=== PATIENT | male | born 1965 | race Caucasian/White ===

== ENCOUNTER 2018-05-26 11:22 | Outpatient (CLI) | payer MEDICAID, OTHER ==
[~2018-05-26 11:22] MED LIST: ASPI-101 PO; NO HOME MEDS; PER10325T PO; cpm
[2018-05-26 11:47] VITALS: BP 136/86
== END 2018-05-26 12:55 | disposition home or self-care (01) ==
LOC: ORTHO 11:22
PROVIDERS: ATTEND Nurse Practitioner Family
DX: M25.562 Pain in left knee (principal); F17.210 Nicotine dependence, cigarettes, uncomplicated; Z96.652 Presence of left artificial knee joint; Z88.5 Allergy status to narcotic agent; Z88.8 Allergy status to other drugs, medicaments and biological substances; Z79.82 Long term (current) use of aspirin
CPT/HCPCS: 73560

== ENCOUNTER 2018-09-07 17:55 | Emergency (ER) | payer MEDICAID ==
[~2018-09-07] VITALS: Ht 185.4 cm; Wt 100.0 kg
[2018-09-07 18:27] VITALS: BP 134/86
[2018-09-07 19:22] LABS: BASOPHILS # (AUTO) 0.1 X10'3 (0-0.2); BASOPHILS % (AUTO) 0.8 % (0-1); EOSINOPHILS # (AUTO) 0.5 X10'3 (0-0.9); EOSINOPHILS % (AUTO) 5.3 % (0-6); HEMATOCRIT 49.4 % (42.0-52.0); HEMOGLOBIN 16.9 g/dl (14.0-17.9); LYMPHOCYTES # (AUTO) 2.2 X10'3 (1.1-4.8); LYMPHOCYTES % (AUTO) 22.9 % (21-51); MEAN CORPUSCULAR HEMOGLOBIN 30.2 PG (27.0-31.0); MEAN CORPUSCULAR HGB CONC 34.3 g/dL (33.0-36.5); MEAN CORPUSCULAR VOLUME 88.1 FL (78-98); MEAN PLATELET VOLUME 9.4 FL (7.4-10.4); MONOCYTES # (AUTO) 0.8 X10'3 (0-0.9); MONOCYTES % (AUTO) 8.4 % (2-12); NEUTROPHILS # (AUTO) 6.1 X10'3 (1.8-7.7); NEUTROPHILS % (AUTO) 62.6 % (42-75); PLATELET COUNT 177 X10'3 (140-440); RED CELL DISTRIBUTION WIDTH 12.8 % (11.5-14.5); WHITE BLOOD COUNT 9.8 X10'3 (4.5-11.0)
[2018-09-07 19:37] LABS: ALANINE AMINOTRANSFERASE 46 U/L (12-78); ALBUMIN 4.2 G/DL (3.4-5.0); ALBUMIN/GLOBULIN RATIO 1.1 (1.1-1.5); ALKALINE PHOSPHATASE 77 IU/L (46-116); ANION GAP 8 (8-16); ASPARTATE AMINO TRANSFERASE 27 U/L (10-37); BILIRUBIN,TOTAL 0.5 MG/DL (0.1-1.0); BLOOD UREA NITROGEN 22 MG/DL (7-18); BUN/CREATININE RATIO 23.4 (5.4-32.0); CALCIUM 9.4 MG/DL (8.5-10.1); CHLORIDE 105 MMOL/L (99-107); CREATININE 0.94 MG/DL (0.60-1.10); GLUCOSE 111 MG/DL (70-104); POTASSIUM 4.6 MMOL/L (3.5-5.1); SODIUM 142 MMOL/L (135-145); TOTAL CARBON DIOXIDE 28.8 MMOL/L (24-32); TOTAL PROTEIN 7.9 G/DL (6.4-8.2); eGFR 85 ML/MIN
[2018-09-07] MEDS ORDERED: ketorolac trometh inj. 60 MG/2 ML VIAL IM ONE (20:10)
[2018-09-07] MEDS ORDERED: TRAM50TA2 PO (20:59)
== END 2018-09-07 21:12 | disposition home or self-care (01) ==
LOC: ER 17:56
DX: K40.20 Bilateral inguinal hernia, without obstruction or gangrene, not specified as recurrent (principal); K21.9 Gastro-esophageal reflux disease without esophagitis; Z98.890 Other specified postprocedural states; Z88.5 Allergy status to narcotic agent; Z88.8 Allergy status to other drugs, medicaments and biological substances; Z79.899 Other long term (current) drug therapy
CPT/HCPCS: 36415; 74176; 80053; 85025; 96372; 99284; J1885

== ENCOUNTER 2019-04-22 19:05 | Emergency (ER) | payer MEDICAID ==
[~2019-04-22] VITALS: Ht 185.4 cm; Wt 93.2 kg
--- NOTE | 2019-04-22 19:52 | NUR ---
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 JENNIFER WAS REQUESTING TO HAVE A DRUG AND ALCOHOL SCREEN COMPLETED ON THE PT. I SPOKE WITH THE PT REGARDING THE PHONE CALL AND MICHELLE SAID THAT IT WAS OK TO SHARE INFORMATION WITH JENNIFER. JENNIFER IS REQUESTING TO HAVE SOMEONE COME TO THE ED TO COLLECT SAMPLES OF BLOOD AND URINE, I VERIFIED WITH MY CHARGE NURSE KAMILA THAT IT WAS OK TO HAVE SOMEONE COME TO THE ED TO COLLECT THE SAMPLES AND SHE SAID THAT IT WAS OK. JENNIFER SAID THAT SHE WOULD CALL BACK AND LET US KNOW WHO WOULD BE COMING AND GIVE US AN ETA.
[2019-04-22] MEDS ORDERED: morphine 4 MG/ML inj SYRINge IV ONE (20:10)
[2019-04-22] MEDS ORDERED: cyclobenzaprine 10mg tablet PO ONE (20:40)
[2019-04-22] MEDS ORDERED: ketorolac tromethamine 15mg/ml inj. IV ONE (20:40)
[2019-04-22] MEDS ORDERED: iohexol 300mg/ml 100ml inj. ONE (20:43)
[2019-04-22] MEDS ORDERED: normal saline 1000ML IV soln IVB ONE (20:45)
[2019-04-22 21:06] LABS: URINE AMPHETAMINE SCREEN NEGATIVE (Neg); URINE BARBITUATE SCREEN NEGATIVE (Neg); URINE BENZODIAZEPINES SCREEN NEGATIVE (Neg); URINE CANNABINOID SCREEN NEGATIVE (Neg); URINE COCAINE SCREEN NEGATIVE (Neg); URINE METHADONE SCREEN NEGATIVE (Neg); URINE OPIATE SCREEN NEGATIVE (Neg); URINE PHENCYCLIDINE SCREEN NEGATIVE (Neg)
[2019-04-22 21:15] LABS: CLARITY,URINE CLEAR (Clear); COLOR,URINE YELLOW (Yellow); GLUCOSE, URINE NEGATIVE (Neg); KETONES,URINE 40 mg/dl (Neg); LEUKOCYTE ESTERASE ,URINE NEGATIVE (Neg); NITRITES, URINE NEGATIVE (Neg); OCCULT BLOOD,URINE NEGATIVE (Neg); PROTEIN,URINE NEGATIVE (Neg); UROBILINOGEN,URINE 0.2 E.U/dL (0.2-1.0)
[2019-04-22 21:26] LABS: PARTIAL THROMBOPLASTIN TIME 26 SECONDS (22-32)
[2019-04-22 21:33] LABS: CREATINE KINASE 148 U/L (39-308); ETHANOL < 0.010 GM/DL (0.0-0.010); TROPONIN I < 0.04 NG/ML (0.0-0.05)
[2019-04-22 21:37] LABS: UA COLLECTION TYPE CLN CATCH MIDSTREAM
[2019-04-22 21:42] LABS: BASOPHILS # (AUTO) 0.1 X10'3 (0-0.2); BASOPHILS % (AUTO) 1.1 % (0-1); EOSINOPHILS # (AUTO) 0.3 X10'3 (0-0.9); EOSINOPHILS % (AUTO) 3.5 % (0-6); HEMATOCRIT 44.8 % (42.0-52.0); HEMOGLOBIN 15.5 g/dl (14.0-17.9); LYMPHOCYTES # (AUTO) 3.1 X10'3 (1.1-4.8); LYMPHOCYTES % (AUTO) 36.9 % (21-51); MEAN CORPUSCULAR HEMOGLOBIN 31.2 PG (27.0-31.0); MEAN CORPUSCULAR HGB CONC 34.6 g/dL (33.0-36.5); MEAN CORPUSCULAR VOLUME 90.2 FL (78-98); MEAN PLATELET VOLUME 9.9 FL (7.4-10.4); MONOCYTES # (AUTO) 0.7 X10'3 (0-0.9); MONOCYTES % (AUTO) 7.7 % (2-12); NEUTROPHILS # (AUTO) 4.3 X10'3 (1.8-7.7); NEUTROPHILS % (AUTO) 50.8 % (42-75); PLATELET COUNT 142 X10'3 (140-440); RED BLOOD COUNT 4.96 X10'6 (4.70-6.10); RED CELL DISTRIBUTION WIDTH 13.2 % (11.5-14.5); WHITE BLOOD COUNT 8.5 X10'3 (4.5-11.0)
[2019-04-22] MEDS ORDERED: HYDR-4383 PO (22:03)
[2019-04-22] MEDS ORDERED: CYCL-1 PO (22:03)
[2019-04-22] MEDS ORDERED: NAPR-56 PO (22:06)
[2019-04-22 22:24] LABS: ALANINE AMINOTRANSFERASE 38 U/L (12-78); ALBUMIN 3.7 G/DL (3.4-5.0); ALBUMIN/GLOBULIN RATIO 1.2 (1.1-1.5); ALKALINE PHOSPHATASE 62 IU/L (46-116); ANION GAP 11 (8-16); ASPARTATE AMINO TRANSFERASE 17 U/L (10-37); BILIRUBIN,TOTAL 0.5 MG/DL (0.1-1.0); BLOOD UREA NITROGEN 10 MG/DL (7-18); CALCIUM 8.6 MG/DL (8.5-10.1); CHLORIDE 104 MMOL/L (99-107); CREATININE 0.91 MG/DL (0.60-1.10); GLUCOSE 93 MG/DL (70-104); POTASSIUM 3.9 MMOL/L (3.5-5.1); SODIUM 141 MMOL/L (135-145); TOTAL CARBON DIOXIDE 25.6 MMOL/L (24-32); TOTAL PROTEIN 6.7 G/DL (6.4-8.2); eGFR 88 ML/MIN
[2019-04-22 22:40] VITALS: BP 148/89
== END 2019-04-22 22:47 | disposition home or self-care (01) ==
LOC: ER 19:05
DX: S80.211A Abrasion, right knee, initial encounter (principal); S80.812A Abrasion, left lower leg, initial encounter; M25.532 Pain in left wrist; M25.562 Pain in left knee; N50.1 Vascular disorders of male genital organs; M79.18 Myalgia, other site; M54.2 Cervicalgia; K21.9 Gastro-esophageal reflux disease without esophagitis; M19.90 Unspecified osteoarthritis, unspecified site; F10.99 Alcohol use, unspecified with unspecified alcohol-induced disorder; Z98.890 Other specified postprocedural states; Z88.5 Allergy status to narcotic agent; Z88.8 Allergy status to other drugs, medicaments and biological substances; Z79.899 Other long term (current) drug therapy; V87.7XXA Person injured in collision between other specified motor vehicles (traffic), initial encounter; Y93.89 Activity, other specified; Y92.89 Other specified places as the place of occurrence of the external cause; Y99.8 Other external cause status; Y90.9 Presence of alcohol in blood, level not specified
CPT/HCPCS: 36415; 71260; 72125; 72131; 74177; 80053; 80305; 80320; 81003; 82550; 83874; 84484; 85025; 85610; 85730; 93005; 96374; 96375; 99284; J1885; J2270; J7030; Q9967

== ENCOUNTER 2022-09-29 15:17 | Emergency (ER) | payer OTHER ==
[~2022-09-29] VITALS: Ht 185.4 cm; Wt 111.4 kg
[~2022-09-29 15:17] MED LIST changes: -ASPI-101 PO; -PER10325T PO; -cpm
[2022-09-29 15:46] VITALS: BP 165/92
--- NOTE | 2022-09-29 17:28 | NUR ---
PT WAS SEEN, TREATED, AND DC'D BY PROVIDER PRIOR TO ORTHODONTIST ASSISTANT
== END 2022-09-29 17:29 | disposition home or self-care (01) ==
LOC: ER 15:17
DX: M25.562 Pain in left knee (principal); K21.9 Gastro-esophageal reflux disease without esophagitis; Z98.890 Other specified postprocedural states; Z79.899 Other long term (current) drug therapy; Z88.5 Allergy status to narcotic agent; Z88.8 Allergy status to other drugs, medicaments and biological substances; Z72.89 Other problems related to lifestyle
CPT/HCPCS: 93971; 99284

== ENCOUNTER 2023-02-17 14:48 | Emergency (ER) | payer OTHER ==
[~2023-02-17] VITALS: Ht 185.4 cm; Wt 130.0 kg
[2023-02-17] MEDS ORDERED: normal saline 1000ml 1,000 ML IV ONE ×2 (15:25→16:10)
[2023-02-17] MEDS ORDERED: diazepam inj 5 MG/ML inj. IV ONE (15:25)
[2023-02-17 15:42] LABS: BASOPHILS # (AUTO) 0.1 X10'3 (0-0.2); BASOPHILS % (AUTO) 1.2 % (0-1); EOSINOPHILS # (AUTO) 0.2 X10'3 (0-0.9); EOSINOPHILS % (AUTO) 3.2 % (0-6); HEMATOCRIT 54.2 % (42.0-52.0); MEAN CORPUSCULAR HEMOGLOBIN 30.6 PG (27.0-31.0); MEAN CORPUSCULAR HGB CONC 34.4 g/dL (33.0-36.5); MEAN PLATELET VOLUME 9.4 FL (7.4-10.4); MONOCYTES # (AUTO) 0.7 X10'3 (0-0.9); MONOCYTES % (AUTO) 9.6 % (2-12); PLATELET COUNT 161 X10'3 (140-440); RED BLOOD COUNT 6.09 X10'6 (4.70-6.10); RED CELL DISTRIBUTION WIDTH 13.9 % (11.5-14.5)
[2023-02-17 15:46] LABS: ALANINE AMINOTRANSFERASE 236 U/L (12-78); ALBUMIN 3.8 G/DL (3.4-5.0); ALKALINE PHOSPHATASE 91 IU/L (46-116); ANION GAP 12 (8-16); ASPARTATE AMINO TRANSFERASE 134 U/L (10-37); BILIRUBIN,TOTAL 0.6 MG/DL (0.1-1.0); BLOOD UREA NITROGEN 17 MG/DL (7-18); BUN/CREATININE RATIO 16.5 (10.0-20.0); CHLORIDE 107 MMOL/L (99-107); CREATININE 1.03 MG/DL (0.60-1.10); GLUCOSE 160 MG/DL (70-104); SODIUM 140 MMOL/L (135-145); TOTAL CARBON DIOXIDE 21.3 MMOL/L (24-32); TOTAL PROTEIN 7.6 G/DL (6.4-8.2); eGFR 75 ML/MIN
[2023-02-17 15:52] LABS: HEMOGLOBIN 18.6 g/dl (14.0-17.9)
[2023-02-17] MEDS ORDERED: magnesium 2GM in 50ml NS 50 ML IV ONE (16:40)
[2023-02-17 18:12] VITALS: BP 126/73
== END 2023-02-17 18:13 | disposition home or self-care (01) ==
LOC: ER 14:48
DX: M62.831 Muscle spasm of calf (principal); M79.605 Pain in left leg; K21.9 Gastro-esophageal reflux disease without esophagitis; G89.29 Other chronic pain; Z88.5 Allergy status to narcotic agent; Z88.8 Allergy status to other drugs, medicaments and biological substances; Z79.899 Other long term (current) drug therapy
CPT/HCPCS: 36415; 80053; 85025; 93971; 96365; 96375; 99285; J3360; J3475; J7030

== ENCOUNTER 2023-03-08 01:15 | Emergency (ER) | payer OTHER ==
[~2023-03-08] VITALS: Ht 185.4 cm; Wt 118.2 kg
--- NOTE | 2023-03-08 01:35 | NUR ---
Per give Cogentin 2mg IM now.
[2023-03-08] MEDS ORDERED: benztropine 1 mg/ml 2ml ampule IM ONE (01:40)
[2023-03-08 02:37] LABS: BASOPHILS # (AUTO) 0.1 X10'3 (0-0.2); BASOPHILS % (AUTO) 1.3 % (0-1); EOSINOPHILS # (AUTO) 0.3 X10'3 (0-0.9); EOSINOPHILS % (AUTO) 4.9 % (0-6); HEMATOCRIT 46.2 % (42.0-52.0); LYMPHOCYTES # (AUTO) 1.8 X10'3 (1.1-4.8); MEAN CORPUSCULAR HEMOGLOBIN 30.6 PG (27.0-31.0); MEAN CORPUSCULAR HGB CONC 34.6 g/dL (33.0-36.5); MEAN CORPUSCULAR VOLUME 88.6 FL (78-98); MEAN PLATELET VOLUME 9.2 FL (7.4-10.4); MONOCYTES # (AUTO) 0.7 X10'3 (0-0.9); MONOCYTES % (AUTO) 11.1 % (2-12); NEUTROPHILS # (AUTO) 3.2 X10'3 (1.8-7.7); NEUTROPHILS % (AUTO) 52.7 % (42-75); PLATELET COUNT 129 X10'3 (140-440); RED BLOOD COUNT 5.22 X10'6 (4.70-6.10); RED CELL DISTRIBUTION WIDTH 13.9 % (11.5-14.5)
[2023-03-08 02:55] LABS: ALANINE AMINOTRANSFERASE 214 U/L (12-78); ALBUMIN 3.1 G/DL (3.4-5.0); ALBUMIN/GLOBULIN RATIO 0.8 (1.1-1.5); ALKALINE PHOSPHATASE 76 IU/L (46-116); ANION GAP 12 (8-16); ASPARTATE AMINO TRANSFERASE 131 U/L (10-37); BILIRUBIN,TOTAL 0.4 MG/DL (0.1-1.0); BLOOD UREA NITROGEN 9 MG/DL (7-18); BUN/CREATININE RATIO 10.5 (10.0-20.0); CALCIUM 8.8 MG/DL (8.5-10.1); CHLORIDE 107 MMOL/L (99-107); CREATININE 0.86 MG/DL (0.60-1.10); GLUCOSE 135 MG/DL (70-104); SODIUM 141 MMOL/L (135-145); TOTAL CARBON DIOXIDE 22.4 MMOL/L (24-32); eGFR > 90 ML/MIN
[2023-03-08] MEDS ORDERED: BENZ0.5T3 PO (04:24)
[2023-03-08 04:37] VITALS: BP 107/64; PULSE 65; RESP 16; TEMP 98.1; O2SAT 91
--- NOTE | 2023-03-08 04:42 | NUR ---
Per Dr. Mazariegos give Ativan 2mg PO prior to discharge.
[2023-03-08] MEDS ORDERED: LORazepam 1 MG tablet PO ONE (04:45)
== END 2023-03-08 04:50 | disposition home or self-care (01) ==
LOC: ER 01:15
DX: R25.8 Other abnormal involuntary movements (principal); M62.838 Other muscle spasm; K21.9 Gastro-esophageal reflux disease without esophagitis; Z88.5 Allergy status to narcotic agent; Z88.8 Allergy status to other drugs, medicaments and biological substances; Z79.899 Other long term (current) drug therapy
CPT/HCPCS: 36415; 80053; 85025; 96372; 99283; J0515